=== PATIENT | female | born 1995 | race Caucasian/White ===

== ENCOUNTER 2022-03-21 14:11 | Outpatient (CLI) | payer SELFPAY ==
--- NOTE | 2022-03-21 14:30 | US_ITS ---
WS: [id number] EARLY OBSTETRICAL ULTRASOUND (<14 WEEKS). HISTORY: VAGINAL BLEEDING IN FIRST TRIMESTER COMPARISON: None available. Single intrauterine gestational sac is identified. Cardiac activity at 141 BPM. [place]-rump length laura sures 1.1 cm which corresponds to a gestation of 7w2d. Normal-appearing yolk sac and amnion demonstra leann. Small subchorionic hemorrhage. Subchorionic hemorrhage measures 3.2 x 1.3 x 2.0 cm. No free fluid. Cervix is closed. Corpus luteum of associated with the RIGHT ovary measures 1.5 x 2.1 x 1.8 cm. US/US OB <= 14 weeks fetus [id number] IMPRESSION: 1. Single intrauterine gestation of 7 weeks 2 days with an EDC of 11/05/2022. 2. Small subchorionic hemorrhage.
== END 2022-03-21 14:12 | disposition home or self-care (01) ==
PROVIDERS: Visit Provider Registered Nurse
DX: O20.9 Hemorrhage in early pregnancy, unspecified (principal); Z3A.01 Less than 8 weeks gestation of pregnancy; N83.11 Corpus luteum cyst of right ovary
CPT/HCPCS: 76801; 84702

== ENCOUNTER → 2022-04-09 08:12 | Outpatient (BNVA) | payer MEDICAID, SELFPAY | PROVIDERS: Visit Provider Obstetrics & Gynecology | DX: Z34.90 Encounter for supervision of normal pregnancy, unspecified, unspecified trimester (principal) | CPT/HCPCS: 80307; 84315; 85027; 86592; 86762; 86803; 86850; 86900; 87086; 87340 ==

== ENCOUNTER → 2022-04-24 10:36 | Outpatient (BNVA) | payer MEDICAID, SELFPAY | PROVIDERS: Visit Provider Obstetrics & Gynecology | DX: Z34.81 Encounter for supervision of other normal pregnancy, first trimester (principal) | CPT/HCPCS: 84315; 87491; 87591 ==

== ENCOUNTER → 2022-05-16 07:50 | Outpatient (BNVA) | payer MEDICAID, SELFPAY | PROVIDERS: Visit Provider Obstetrics & Gynecology | DX: O26.892 Other specified pregnancy related conditions, second trimester (principal); R10.31 Right lower quadrant pain; Z3A.15 15 weeks gestation of pregnancy | CPT/HCPCS: 76801 ==

== ENCOUNTER → 2022-05-24 15:45 | Outpatient (BNVA) | payer MEDICAID, SELFPAY | PROVIDERS: Visit Provider Nurse Practitioner Women's Health | DX: Z34.90 Encounter for supervision of normal pregnancy, unspecified, unspecified trimester (principal); K52.9 Noninfective gastroenteritis and colitis, unspecified | CPT/HCPCS: 80053; 84315; 85025 ==

== ENCOUNTER → 2022-06-21 14:44 | Outpatient (BNVA) | payer MEDICAID, SELFPAY | PROVIDERS: Visit Provider Obstetrics & Gynecology | DX: O32.1XX0 Maternal care for breech presentation, not applicable or unspecified (principal); Z3A.20 20 weeks gestation of pregnancy | CPT/HCPCS: 76805 ==

== ENCOUNTER → 2022-08-03 07:53 | Outpatient (BNVA) | payer MEDICAID, SELFPAY | PROVIDERS: Visit Provider Obstetrics & Gynecology | DX: Z34.90 Encounter for supervision of normal pregnancy, unspecified, unspecified trimester (principal) | CPT/HCPCS: 82950; 84315; 85025 ==

== ENCOUNTER → 2022-08-27 12:40 | Outpatient (BNVA) | payer MEDICAID, SELFPAY | PROVIDERS: PCP Registered Nurse; Visit Provider Obstetrics & Gynecology | DX: O36.5930 Maternal care for other known or suspected poor fetal growth, third trimester, not applicable or unspecified (principal); Z3A.31 31 weeks gestation of pregnancy | CPT/HCPCS: 76816; 76820 ==

== ENCOUNTER 2022-09-04 13:47 | Outpatient (CLI) | payer MEDICAID, SELFPAY ==
--- NOTE | 2022-09-04 14:00 | US_ITS ---
WS: [id number] BIOPHYSICAL PROFILE AND LIMITED OB. HISTORY: Growth. COMPARISON: 08/27/2022, 03/21/2022 Presentation: Vertex. Cervix: Closed and normal length. Placenta: Anterior, no previa. Grade: 1 HEART: FHR of 153BPM. measurements: BPD = 7.6 cm = 30w5d; 24th percentile HC = 28.4 cm = 31w1d; 16th percentile AC = 26.2 cm = 30w2d; 24th percentile FL = 5.8 cm = 30w2d; 16th percentile EMMIE: 11.4 centimeters; single vertical pocket 4.7 cm. EFW: 1572g; 42nd percentile AGA by ultrasound: 30w4d RAHUL by ultrasound: 11/09/2022 Biophysical profile: Parameters are as follows: Breathin Movement: 2 Tone: 2 Fluid volume: 2 US/US OB F/U w BPP wo NST IMPRESSION: 1. Biophysical profile score: 8/8. 2. Single intrauterine gestation of 30w4d with an 11/09/2022. Appropriate growt h since the first trimester ultrasound. 3. Improved biometry measurements. Biometry measurements are now all greater th en the 10th percentile. 3. Normal amniotic fluid.
== END 2022-09-04 13:48 | disposition home or self-care (01) ==
PROVIDERS: PCP Registered Nurse; Visit Provider Obstetrics & Gynecology
DX: O36.5990 Maternal care for other known or suspected poor fetal growth, unspecified trimester, not applicable or unspecified (principal)
CPT/HCPCS: 76816; 76819

== ENCOUNTER → 2022-09-10 13:02 | Outpatient (BNVA) | payer MEDICAID, SELFPAY | PROVIDERS: PCP Registered Nurse; Visit Provider Obstetrics & Gynecology | DX: Z34.90 Encounter for supervision of normal pregnancy, unspecified, unspecified trimester (principal) | CPT/HCPCS: 76819; 84315 ==

== ENCOUNTER → 2022-09-27 13:40 | Outpatient (BNVA) | payer MEDICAID, SELFPAY | PROVIDERS: PCP Registered Nurse; Visit Provider Obstetrics & Gynecology | DX: O09.93 Supervision of high risk pregnancy, unspecified, third trimester (principal) | CPT/HCPCS: 76819; 76820 ==

== ENCOUNTER → 2022-10-02 15:11 | Outpatient (BNVA) | payer MEDICAID, SELFPAY | PROVIDERS: PCP Registered Nurse; Visit Provider Obstetrics & Gynecology | DX: O09.93 Supervision of high risk pregnancy, unspecified, third trimester (principal); Z3A.35 35 weeks gestation of pregnancy | CPT/HCPCS: 76815; 76819; 76820 ==

== ENCOUNTER 2022-10-05 15:07 | Outpatient (CLI) | payer MEDICAID, SELFPAY ==
[2022-10-05 15:15] VITALS: RESP 17; BMI 26.7
[2022-10-05 15:20] VITALS: BP 118/69; PULSE 99
[2022-10-05 15:35] VITALS: BP 111/69; PULSE 101
== END 2022-10-05 15:40 | disposition home or self-care (01) ==
LOC: OPOB 15:08 → OBGYN 15:11
PROVIDERS: PCP Registered Nurse; Visit Provider Obstetrics & Gynecology
DX: O36.5990 Maternal care for other known or suspected poor fetal growth, unspecified trimester, not applicable or unspecified (principal); Z3A.00 Weeks of gestation of pregnancy not specified
CPT/HCPCS: 59025; 84315

== ENCOUNTER → 2022-10-09 14:32 | Outpatient (BNVA) | payer MEDICAID, SELFPAY | PROVIDERS: PCP Registered Nurse; Visit Provider Obstetrics & Gynecology | DX: O36.5990 Maternal care for other known or suspected poor fetal growth, unspecified trimester, not applicable or unspecified (principal) | CPT/HCPCS: 76819; 76820 ==

== ENCOUNTER → 2022-10-12 14:18 | Outpatient (BNVA) | payer MEDICAID, SELFPAY | PROVIDERS: PCP Registered Nurse; Visit Provider Obstetrics & Gynecology | DX: Z34.90 Encounter for supervision of normal pregnancy, unspecified, unspecified trimester (principal) | CPT/HCPCS: 84315 ==

== ENCOUNTER 2022-10-12 15:00 | Outpatient (CLI) | payer MEDICAID, SELFPAY ==
[2022-10-12 15:00] VITALS: BMI 27.1
[2022-10-12 15:15] VITALS: BP 118/69; PULSE 93
[2022-10-12 15:39] VITALS: BP 114/68; PULSE 92
== END 2022-10-12 15:41 | disposition home or self-care (01) ==
LOC: OPOB 15:05 → OBGYN 15:07
PROVIDERS: PCP Registered Nurse; Visit Provider Obstetrics & Gynecology
DX: O09.893 Supervision of other high risk pregnancies, third trimester (principal)
CPT/HCPCS: 59025; 84315; 87081; 87086; 99211

== ENCOUNTER 2022-10-16 15:55 | Outpatient (CLI) | payer MEDICAID, SELFPAY ==
[2022-10-16 15:55] VITALS: BMI 27.1
[2022-10-16 16:15] VITALS: BP 111/74; PULSE 87
[2022-10-16 16:30] VITALS: BP 108/65; PULSE 90
== END 2022-10-16 16:40 | disposition home or self-care (01) ==
LOC: OPOB 15:57 → OBGYN 15:59
PROVIDERS: PCP Registered Nurse; Visit Provider Obstetrics & Gynecology
DX: O36.5990 Maternal care for other known or suspected poor fetal growth, unspecified trimester, not applicable or unspecified (principal); Z3A.00 Weeks of gestation of pregnancy not specified
CPT/HCPCS: 59025; 76819; 76820

== ENCOUNTER 2022-10-18 13:00 | Outpatient (CLI) | payer MEDICAID, SELFPAY ==
[2022-10-18] VITALS (9 sets, daily range): BP systolic 103–120; BP diastolic 57–76; PULSE 88–100; RESP 18; TEMP 35.9; BMI 27.6
--- NOTE | 2022-10-18 13:36 | US_ITS ---
WS: [id number] ULTRASOUND OB LIMITED TECHNIQUE: Limited ultrasound examination of the fetus. CLINICAL INFORMATION: Decreased movement COMPARISON: October 16, 2022 FINDINGS: Closed cervix measuring 3.9 cm Single interuterine gestation. presentation is vertex heart rate 157 BPM. Single deep vertical pocket 5.7 cm Biophysical profile 8 out of 8. breathin movement: 2 tone: 2 Amniotic fluid: 2 US/US OB BPP wo NST [id number] IMPRESSION: 1. Closed cervix measuring 3.9 cm 2. Normal biophysical profile 8 out of 8 3. Single deep vertical pocket 5.7 cm
== END 2022-10-18 14:25 | disposition home or self-care (01) ==
LOC: OPOB 13:03 → OBGYN 13:04
PROVIDERS: PCP Registered Nurse; Visit Provider Obstetrics & Gynecology
DX: O36.8190 Decreased fetal movements, unspecified trimester, not applicable or unspecified (principal); Z3A.00 Weeks of gestation of pregnancy not specified
CPT/HCPCS: 59025; 76819; 99211

== ENCOUNTER 2022-10-23 15:57 | Outpatient (CLI) | payer MEDICAID, SELFPAY ==
[2022-10-23 15:57] VITALS: BMI 27.1
[2022-10-23 16:09] VITALS: BP 120/68; PULSE 93
--- NOTE | 2022-10-23 16:30 | PC.NURSE ---
Pt chart has a note with a telephone order from Dr. Marsh stating no need to call unless any issues or concerns.
== END 2022-10-23 16:30 | disposition home or self-care (01) ==
LOC: OPOB 16:05 → OBGYN 16:06
PROVIDERS: PCP Registered Nurse; Visit Provider Obstetrics & Gynecology
DX: Z36.9 Encounter for antenatal screening, unspecified (principal); Z3A.00 Weeks of gestation of pregnancy not specified
CPT/HCPCS: 59025; 76819; 76820; 99211

== ENCOUNTER 2022-10-30 15:56 | Outpatient (CLI) | payer MEDICAID, SELFPAY ==
[2022-10-30 16:03] VITALS: BP 116/76; PULSE 97
[2022-10-30 16:10] VITALS: BMI 27.6
[2022-10-30 16:23] VITALS: BP 113/77; PULSE 93
== END 2022-10-30 16:25 | disposition home or self-care (01) ==
LOC: OPOB 15:59 → OBGYN 16:00
PROVIDERS: PCP Registered Nurse; Visit Provider Obstetrics & Gynecology
DX: Z36.9 Encounter for antenatal screening, unspecified (principal)
CPT/HCPCS: 59025; 76815; 76819; 76820

== ENCOUNTER → 2022-11-06 14:15 | Outpatient (BNVA) | payer MEDICAID, SELFPAY | PROVIDERS: PCP Registered Nurse; Visit Provider Obstetrics & Gynecology | DX: O36.5990 Maternal care for other known or suspected poor fetal growth, unspecified trimester, not applicable or unspecified (principal) | CPT/HCPCS: 76819; 76820 ==

== ENCOUNTER 2022-11-06 20:20 | Inpatient (IN) | payer MEDICAID, SELFPAY ==
[2022-11-06 20:23] VITALS: BMI 27.9
[2022-11-06 21:28] VITALS: RESP 16
[2022-11-06 21:34] LABS: Basophils % 0.2 %; Eosinophils # 0.1 10^3/uL (0.0-0.8); Eosinophils % 0.6 %; Hematocrit 34.5 % (37.0-47.0); Hemoglobin 11.4 g/dL (11.5-15.3); Lymphocytes # 2.5 10^3/uL (0.8-4.8); Lymphocytes % 18.8 %; Mean Corpuscular Hemoglobin 31.6 pg (28.0-34.0); Mean Corpuscular Volume 95.6 fl (81-99); Mean Platelet Volume 10.9 fL (7.4-10.4); Monocytes # 1.1 10^3/uL (0.2-0.9); Monocytes % 8.6 %; Neutrophils # 9.37 10^3/uL (1.8-7.7); Neutrophils % 70.9 %; Nucleated Red Blood Cells % 0 %; Platelet Count 184 10^3/cmm (130-400); Red Blood Count 3.61 10^6/uL (4.1-5.3); Red Cell Distribution Width 13.1 % (12.1-15.1); White Blood Count 13.2 10^3/uL (4.0-10.0)
[2022-11-06] MEDS: miSOPROStol 100 mcg tablet 25 MCG VAGINAL (22:45)
[2022-11-06 23:18] VITALS: BP 127/70; PULSE 94
--- NOTE | 2022-11-06 23:43 | PM.OPHPUD ---
Labor & Delivery H&P Update Date of Procedure: November 06, 2022 Date H&P Performed: 11/06/22 H&P update information: I have reviewed H&P completed within last 30 days, I have examined patient prior to procedure and Changes to prior documentation as noted here Changes to previous documentation: The patient was found to have oligohydramnios on ultrasound. She is being admitted for induction of labor for oligohydramnios. IUP@ 40 weeks, 1 day. Cervix /-3 Admission Diagnosis: iup@ 40 weeks, 1 day, oligohydramnios
[2022-11-06 23:49] VITALS: BP 112/70; PULSE 96
[2022-11-07] VITALS (58 sets, daily range): BP systolic 91–155; BP diastolic 51–94; PULSE 72–108; RESP 16; TEMP 36.6; O2SAT 92–98
[2022-11-07] MEDS: lactated ringers 1,000 ML 999 ML IV ×3 (02:41→11:40)
[2022-11-07] MEDS: miSOPROStol 100 mcg tablet 25 MCG VAGINAL (05:08)
[2022-11-07] MEDS: dextrose 5%-lactated ringers 1,000 ML 125 ML IV (12:49)
--- NOTE | 2022-11-07 14:38 | ANES.PREANE2 ---
Pre-Anesthetic Assessment Height/Weight: Height 1.63 m Weight 73.936 kg Pulse Resp BP Pulse Ox O2 Del Method 86 16 103/56 95 Room Air 11/07/22 14:15 11/06/22 21:28 11/07/22 14:15 11/07/22 03:27 11/06/22 20:23 Preop Diagnosis: IUP Epidural Familial anesthetic complications: None Social No alcohol and No tobacco Exam alert, oriented x 3, clear to auscultation bilaterally and regular rate & rhythm Airway Dentition: full Anesthetic Plan ASA status: 2 Anesthesia: Regional (specify below) Risk of > 500 ml blood loss (7ml/kg in children): Yes, adequate IV access and fluids planned Medications/Allergies Home Medications Medication Instructions Recorded Confirmed Last Taken Type prenat.vits,claire,yju-wsip-lxfyv 1 tab PO DAILY 04/09/22 11/06/22 10/29/22 History Allergies Allergy/AdvReac Type Severity Reaction Status Date / Time arginine oxoglurate Allergy Severe itching, Verified 11/02/22 15:16 [From hives L-Arginine(alpha-ketoglutarat)] pineapple Allergy Severe itchy Uncoded 11/02/22 15:16 throat septra Allergy Intermediate rash Uncoded 11/02/22 15:16 Current Medications Generic Name Dose Route Start Last Admin Trade Name Freq PRN Reason Stop Dose Admin Dextrose/Lactated Ringer's 1,000 mls @ 125 mls/hr 11/06/22 21:30 11/07/22 12:49 Dextrose 5%-Lactated Ringers IV 125 mls/hr .Q8H WALDO Administration Lactated Ringer's 1,000 mls @ 999 mls/hr 11/06/22 21:28 11/07/22 02:41 Lactated Ringers IV 999 mls/hr .Q1H1M PRN Administration Per L&D Rescitation Protocol Lactated Ringer's 1,000 mls @ 999 mls/hr 11/07/22 10:17 11/07/22 11:40 Lactated Ringers IV 999 mls/hr .Q1H1M PRN Administration See label comments Ropivacaine 200 mg in 100 mls @ 13 mls/hr 11/07/22 10:30 11/07/22 11:35 Naropin Premix EPIDURAL 13 mls/hr .Q7H42M WALDO Administration PFSH Anesthesia Medical History No pertinent past medical history neghx: htn,dm,thyroid,dvt/pe PCP: Alice Barbosa Surgical History No history of previous surgery Family History Unknown Unknown family medical history The patient is adopted Female Reproductive History : 2 Data Anesthesia 11/06/22 21:05 Short CBC 11/06/22 Range/Units 21:05 WBC 13.2 H (4.0-10.0) 10^3/uL Hgb 11.4 L (11.5-15.3) g/dL Hct 34.5 L (37.0-47.0) % MCV 95.6 (81-99) fl Plt Count 184 (130-400) 10^3/cmm Neut % (Auto) 70.9 % Neut # (Auto) 9.37 H (1.8-7.7) 10^3/uL Cardiac Studies: No Data to Display
--- NOTE | 2022-11-07 14:38 | ANES.PROC ---
Anesthesia Procedures Procedure/Date: 11/07/22 Epidural: Time Out Performed: Yes Consents Signed: Procedure Consent Consent: requested by attending/covering physician, from patient, from other, risks and benefits reviewed and patient agrees to proceed Lumbar Level: L2-L3 Epidural position: sitting Epidural procedure: sterile prep of area, 1% lidocaine to numb the area, 18 g needle, negative for paresthesia passed, neg for paresthesia, test dose given, 1.5% xylocaine 1:200k epi (5 cc), 0.2% Ropivacaine bolus ml (5 cc), placed PCEA, no systemic response, sterile dressing applied, L.U.D. no apparent complications and 0.2% Ropiavacaine @ mls/hr (13) Additional Comments: VIDA at 4 cm, threaded to 10 cm
--- NOTE | 2022-11-07 16:44 | PM.DELIVERY ---
Delivery Note: Date of delivery: November 07, 2022 Pre-delivery diagnoses: iup@40 weeks, 2 days, oligohydramnios. Post-delivery diagnoses: same-delivered Procedure: Delivering Physician: Dr. courtney Estimated blood loss (mL): 25 Findings: term female in the cephalic presentation Pre-Delivery Course: The patient was admitted for induction of labor for oligohydramnios. She received two doses of cytotec and began laboring spontaneously from the cytotec. She received an epidural for pain management. She had complete cervical dilation and had AROM performed. Delivery: The patient had complete cervical dilation and began to push. The head delivered in the ADAM position over an intact perineum under epidural anesthesia. The nose and mouth were bulb suctioned. The shoulders and body delivered atraumatically. The baby was placed onto the mother's abdomen. The cord was clamped and cut. Cord blood was obtained. The placenta delivered spontaneously. It was inspected and found to be intact. Inspection of the perineum revealed a small (1 cm) first-degree vaginal laceration. It was hemostatic and no sutures were placed. Estimated blood loss 25 mL. Apgars on baby were 8 at 1 minute and 9 at 5 minutes. Weight of baby is 7 pounds 3 ounces. Mother and baby were stable post delivery. History History History 2 Term 1 0 Miscarriages/Ectopic 0 Living Children 1 Coding Level of Care Code Acute Code for Chg Fwd Diagnoses
--- NOTE | 2022-11-07 19:49 | PC.NURSE ---
At 1622 Dr. Lucia gave verbal order to start pitocin at 2 mls/hr until delivery of fetus.
[2022-11-07] MEDS: ibuprofen 800 mg tablet PO (20:11)
[2022-11-07] MEDS: docusate sodium 100 mg Capsule PO (20:11)
[2022-11-07] MEDS: benzocaine-menthol 78 gm Canister 1 SPRAY TOPICAL (20:12)
[2022-11-07] MEDS: lanolin oint 7 gm 1 APPLIC TOPICAL (20:12)
[2022-11-07] MEDS: acetaminophen 325 mg Tablet 650 MG PO (21:33)
[2022-11-08] MEDS: HYDROcodone-acetaminophen 5-325 mg Tablet PO (02:09)
[2022-11-08 05:03] VITALS: BP 97/51; PULSE 88; RESP 18; TEMP 36.8; O2SAT 96
[2022-11-08 05:17] LABS: Hematocrit 31.5 % (37.0-47.0); Mean Corpuscular HGB Conc 31.7 g/dL (30.0-36.0); Mean Corpuscular Volume 97.5 fl (81-99); Mean Platelet Volume 10.6 fL (7.4-10.4); Platelet Count 142 10^3/cmm (130-400); Red Blood Count 3.23 10^6/uL (4.1-5.3); White Blood Count 14.2 10^3/uL (4.0-10.0)
[2022-11-08 07:35] VITALS: BP 110/69; PULSE 82; RESP 18; TEMP 37
--- NOTE | 2022-11-08 08:08 | P.PN_ITS ---
Vitals/I&O/Wt Last Vital Signs Temp 98.3 F 11/08/22 05:03 Pulse 88 11/08/22 05:03 Resp 18 11/08/22 05:03 BP 97/51 11/08/22 05:03 Pulse Ox 96 11/08/22 05:03 O2 Del Method Room Air 11/08/22 05:03 11/07/22 11/08/22 11/08/22 22:59 06:59 14:59 Intake Total 1456.75 / 2456.75 Output Total 1100 / 1100 Balance 356.75 / 1356.75 Weight last 48 hrs Weight 163 lb Physical Exam Narrative: The patient is doing well today. No concers. is going well. normal lochia. Pain is well controlled. The patient requests to stay until tomorrow Const: COMMON NORMALS: no acute distress, average body habitus, patient or iented x3, no limitations, healthy appearing, alert and well nourished GENERAL APPEARANCE: cooperative, comfortable, well kempt and well developed ORIENTATION/CONSCIOUSNESS: Yes awake, Yes oriented to person, Yes oriented to place and Yes oriented to time Resp: COMMON NORMALS: normal respiratory effort EFFORT & INSPECTION: Yes able to speak in complete sentences GI: COMMON NORMALS: Soft to palpation and non-tender PALPATION: Yes Soft to palpation Extremity: COMMON NORMALS: no calf tenderness Neuro: COMMON NORMALS: patient oriented x3 SENSORIUM/ORIENTATION: Yes alert, Yes oriented to person, Yes oriented to place and Yes oriented to time Psych: COMMON NORMALS: mental status grossly normal, Normal thought process present and speech normal APPEARANCE: Yes well kempt SPEECH: Yes normal speech THOUGHT PROCESS: Normal thought process present Urinary Catheter Management: Allison: Cath Placed During This Visit: yes, but has since been removed by the nurse Reason for Continuing Indwelling Catheter: Required Immobilization for Trauma or Surgery or Anesthesia Urinary Catheter Date of Insertion: 11/07/22 Urinary Catheter Time of Insertion: 12:10 Date Urinary Catheter Removed: 11/07/22 Time Urinary Catheter Discontinued: 16:20 Data 11/08/22 05:10 Attestations Medical Necessity Statement*: The patient had vaginal delivery and requests to stay for two nights. Coding Level of Care Code Acute Code for Chg Fwd Diagnoses
[2022-11-08] MEDS: ibuprofen 800 mg tablet PO ×3 (09:18→20:55)
[2022-11-08] MEDS: prenatal vitamin Capsule 1 CAP PO (09:19)
[2022-11-08] MEDS: docusate sodium 100 mg Capsule PO ×2 (09:19→17:14)
[2022-11-08 14:42] VITALS: BP 111/70; PULSE 90; RESP 18; TEMP 36.9
[2022-11-08] MEDS: acetaminophen 325 mg Tablet 650 MG PO (17:14)
[2022-11-08 20:54] VITALS: BP 109/61; PULSE 89; RESP 18; TEMP 36.6; O2SAT 95
[2022-11-09] MEDS: HYDROcodone-acetaminophen 5-325 mg Tablet PO (00:44)
[2022-11-09 04:00] VITALS: BP 109/58; PULSE 96; RESP 18; TEMP 36.9; O2SAT 97
[2022-11-09] MEDS: ibuprofen 800 mg tablet PO (08:28)
[2022-11-09] MEDS: prenatal vitamin Capsule 1 CAP PO (08:29)
[2022-11-09] MEDS: docusate sodium 100 mg Capsule PO (08:29)
--- NOTE | 2022-11-09 09:38 | P.DS_ITS ---
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 Date of Admission: 11/06/22 20:20 Date of Discharge: November 09, 2022 Attending Provider at Admission: Carine Lucia MD Attending Provider at Discharge: Carine Lucia MD Primary Care Provider: Sara Barbosa Reason for Visit Reason for Visit: low fluid Hospital Course Hospital Course The patient was admitted for induction at term with oligohydramnios. She had spontaneous delivery of a term . She did well and was ready for discharge on day #2 Physical Exam Narrative: no concerns today Const: COMMON NORMALS: no acute distress, average body habitus, patient oriented x3, no limitations, healthy appearing, alert and well nourished GENERAL APPEARANCE: cooperative, comfortable, well kempt and well developed ORIENTATION/CONSCIOUSNESS: Yes awake, Yes oriented to person, Yes oriented to place and Yes oriented to time Resp: COMMON NORMALS: normal respiratory effort EFFORT & INSPECTION: Yes able to speak in complete sentences GI: COMMON NORMALS: Soft to palpation and non-tender PALPATION: Yes Soft to palpation Extremity: COMMON NORMALS: no calf tenderness Neuro: COMMON NORMALS: patient oriented x3 SENSORIUM/ORIENTATION: Yes alert, Yes oriented to person, Yes oriented to place and Yes oriented to time Psych: APPEARANCE: Yes well kempt Urinary Catheter Management: Allison: Cath Placed During This Visit: yes, but has since been removed by the nurse Reason for Continuing Indwelling Catheter: Required Immobilization for Trauma or Surgery or Anesthesia Urinary Catheter Date of Insertion: 11/07/22 Urinary Catheter Time of Insertion: 12:10 Date Urinary Catheter Removed: 11/07/22 Time Urinary Catheter Discontinued: 16:20 Discharge Data Studies Completed and Pending Laboratory Results WBC 14.2 10^3/uL (4.0-10.0) H 11/08/22 05:10 RBC 3.23 10^6/uL (4.1-5.3) L 11/08/22 05:10 Hgb 10.0 g/dL (11.5-15.3) L 11/08/22 05:10 Hct 31.5 % (37.0-47.0) L 11/08/22 05:10 MCV 97.5 fl (81-99) 11/08/22 05:10 MCH 31.0 pg (28.0-34.0) 11/08/22 05:10 MCHC 31.7 g/dL (30.0-36.0) 11/08/22 05:10 RDW 13.0 % (12.1-15.1) 11/08/22 05:10 Plt Count 142 10^3/cmm (130-400) 11/08/22 05:10 MPV 10.6 fL (7.4-10.4) H 11/08/22 05:10 Neut % (Auto) 70.9 % 11/06/22 21:05 Lymph % (Auto) 18.8 % 11/06/22 21:05 [place] % (Auto) 8.6 % 11/06/22 21:05 Eos % (Auto) 0.6 % 11/06/22 21:05 Baso % (Auto) 0.2 % 11/06/22 21:05 Neut # (Auto) 9.37 10^3/uL (1.8-7.7) H 11/06/22 21:05 Lymph # (Auto) 2.5 10^3/uL (0.8-4.8) 11/06/22 21:05 [place] # (Auto) 1.1 10^3/uL (0.2-0.9) H 11/06/22 21:05 Eos # (Auto) 0.1 10^3/uL (0.0-0.8) 11/06/22 21:05 Baso # (Auto) 0.0 10^3/uL (0.0-0.1) 11/06/22 21:05 Nucleated RBC % (auto) 0 % 11/06/22 21:05 Nucleated RBCs # 0.0 /100WBC 11/06/22 21:05 Vitals Last Vital Signs Temp 98.5 F 11/09/22 04:00 Pulse 96 11/09/22 04:00 Resp 18 11/09/22 04:00 BP 109/58 11/09/22 04:00 Pulse Ox 97 11/09/22 04:00 O2 Del Method Room Air 11/09/22 04:00 Discharge Plan Discharge Condition: Stable Prescriptions: Continued prenat.vits,claire,[id number] Tablet 1 tab PO DAILY Discharge Orders: Discharge Order (Routine); Ordered 11/09/22 Ordered By: Carine Lucia Referrals: Rah Marsh MD [Physician] - 12/17/22 1:30 pm Patient Instructions: Depression (DC), Bleeding (DC), Preeclampsia and Eclampsia After Delivery (GEN), Hemorrhage (DC), OB Discharge Report, OB Food/Drug Interaction Guide, Opioid Safety, OB Home Care, OB Vaginal Deliveries - [facility] Discharge Attestations Time Spent in Discharge Care*: less than 30 min Quality Metrics Clinical Quality Measures [ No reported AMI, CVA or VTE this stay] Coding Level of Care Code Acute Code for Chg Fwd Diagnoses
[2022-11-09 10:30] VITALS: BP 120/81; PULSE 78; TEMP 36.7; O2SAT 96
--- NOTE | 2022-11-09 13:43 | ANE.PACU2 ---
Inpatient post-anesthesia follow up: Airway intact: Yes Vital signs: Temperature 98.1 F Pulse Rate 78 Respiratory Rate 18 Blood Pressure 120/81 Pulse Oximetry 96 Oxygen Delivery Me thod Room Air Oxygen Flow Rate Fraction of Inspir ed Oxygen Hydration adequate: Yes Nausea and vomiting: Yes Pain level: 2 Mental status: Baseline
== END 2022-11-09 11:04 | disposition home or self-care (01) | DRG 807 ==
LOC: OPOB 20:21 → OBGYN 20:21
PROVIDERS: Admitting Provider Obstetrics & Gynecology; PCP Registered Nurse; Visit Provider Obstetrics & Gynecology
DX: O41.03X0 Oligohydramnios, third trimester, not applicable or unspecified (principal); Z37.0 Single live birth; Z3A.40 40 weeks gestation of pregnancy; O70.0 First degree perineal laceration during delivery; O48.0 Post-term pregnancy
CPT/HCPCS: 36415; 51702; 59025; 59409; 84315; 85025; 85027; 99211; J2590; J2795; J7040; J7120; J7121

== ENCOUNTER → 2023-12-18 08:26 | Outpatient (BNVA) | payer MEDICAID, SELFPAY | PROVIDERS: PCP Registered Nurse; Visit Provider Nurse Practitioner Women's Health | DX: N92.6 Irregular menstruation, unspecified (principal); Z78.9 Other specified health status | CPT/HCPCS: 81025; 84702 ==

== ENCOUNTER → 2024-01-15 12:24 | Outpatient (BNVA) | payer MEDICAID, SELFPAY | PROVIDERS: PCP Registered Nurse; Visit Provider Nurse Practitioner Women's Health | DX: Z36.87 Encounter for antenatal screening for uncertain dates (principal) | CPT/HCPCS: 76801; 80307; 84315; 84443; 85025; 86592; 86762; 86803; 86850; 86900; 87086; 87340; 87806 ==

== ENCOUNTER → 2024-02-07 13:09 | Outpatient (BNVA) | payer MEDICAID, SELFPAY | PROVIDERS: PCP Registered Nurse; Visit Provider Obstetrics & Gynecology | DX: Z34.80 Encounter for supervision of other normal pregnancy, unspecified trimester (principal) | CPT/HCPCS: 84315; 87491; 87591; 88175 ==

== ENCOUNTER → 2024-03-18 14:23 | Outpatient (BNVA) | payer MEDICAID, SELFPAY | PROVIDERS: PCP Registered Nurse; Visit Provider Obstetrics & Gynecology | DX: Z36.2 Encounter for other antenatal screening follow-up (principal); Z3A.20 20 weeks gestation of pregnancy | CPT/HCPCS: 76805 ==

== ENCOUNTER → 2024-04-13 09:23 | Outpatient (BNVA) | payer MEDICAID, SELFPAY | PROVIDERS: PCP Registered Nurse; Visit Provider Obstetrics & Gynecology | DX: Z34.80 Encounter for supervision of other normal pregnancy, unspecified trimester (principal) | CPT/HCPCS: 82950; 84315 ==

== ENCOUNTER → 2024-04-16 13:56 | Outpatient (BNVA) | payer MEDICAID, SELFPAY | PROVIDERS: PCP Registered Nurse; Visit Provider Obstetrics & Gynecology | DX: Z36.4 Encounter for antenatal screening for fetal growth retardation (principal); Z3A.24 24 weeks gestation of pregnancy | CPT/HCPCS: 76816 ==

== ENCOUNTER → 2024-05-15 14:23 | Outpatient (BNVA) | payer MEDICAID, SELFPAY | PROVIDERS: PCP Registered Nurse; Visit Provider Obstetrics & Gynecology | DX: Z34.80 Encounter for supervision of other normal pregnancy, unspecified trimester (principal) | CPT/HCPCS: 84315; 85025 ==

== ENCOUNTER → 2024-06-26 14:19 | Outpatient (BNVA) | payer MEDICAID, SELFPAY | PROVIDERS: PCP Registered Nurse; Visit Provider Nurse Practitioner Women's Health | DX: Z34.83 Encounter for supervision of other normal pregnancy, third trimester (principal) | CPT/HCPCS: 84315 ==

== ENCOUNTER → 2024-07-07 08:33 | Outpatient (BNVA) | payer MEDICAID, SELFPAY | PROVIDERS: PCP Registered Nurse; Visit Provider Obstetrics & Gynecology | DX: Z36.9 Encounter for antenatal screening, unspecified (principal) | CPT/HCPCS: 76816 ==

== ENCOUNTER → 2024-07-10 11:22 | Outpatient (BNVA) | payer MEDICAID, SELFPAY | PROVIDERS: PCP Registered Nurse; Visit Provider Obstetrics & Gynecology | DX: Z34.80 Encounter for supervision of other normal pregnancy, unspecified trimester (principal); Z87.59 Personal history of other complications of pregnancy, childbirth and the puerperium | CPT/HCPCS: 84315; 87081 ==

== ENCOUNTER → 2024-07-17 10:58 | Outpatient (BNVA) | payer MEDICAID, SELFPAY | PROVIDERS: PCP Registered Nurse; Visit Provider Obstetrics & Gynecology | DX: Z34.80 Encounter for supervision of other normal pregnancy, unspecified trimester (principal) | CPT/HCPCS: 84315 ==

== ENCOUNTER 2024-07-22 12:57 | Inpatient (IN) | payer MEDICAID, SELFPAY ==
[2024-07-22] VITALS (32 sets, daily range): BP systolic 102–145; BP diastolic 56–85; PULSE 83–112; RESP 17; TEMP 36.1–36.2; BMI 29.2
[2024-07-22 08:39] LABS: Basophils % 0.3 %; Eosinophils # 0.1 10^3/uL (0.0-0.8); Eosinophils % 1.1 %; Hematocrit 32.9 % (36-47); Lymphocytes # 2.6 10^3/uL (0.8-4.8); Lymphocytes % 22.5 %; Mean Corpuscular HGB Conc 32.8 g/dL (30-55); Mean Corpuscular Hemoglobin 30.4 pg (27-33); Mean Corpuscular Volume 92.7 fl (85-98); Mean Platelet Volume 11.4 fL (7.4-10.4); Monocytes # 1.2 10^3/uL (0.2-0.9); Monocytes % 9.9 %; Neutrophils # 7.45 10^3/uL (1.8-7.7); Neutrophils % 64.5 %; Nucleated Red Blood Cells % 0 %; Platelet Count 189 10^3/cmm (157-399); Red Blood Count 3.55 10^6/uL (3.85-5.65); Red Cell Distribution Width 13.4 % (12.1-15.1); White Blood Count 11.57 10^3/uL (3.29-11.43)
[2024-07-22] MEDS: terbutaline 1 mg/mL INJ 0.25 MG SUBCUT (09:44)
--- NOTE | 2024-07-22 10:19 | P.PN_ITS ---
Subjective 2 Subjective: Mrs. Alatorre 28-year-old female with an estimated gestational age at 38+3 weeks in transverse presentation. Vitals/I&O/Wt Last Vital Signs Pulse 100 07/22/24 10:16 Resp 17 07/22/24 08:06 BP 131/62 07/22/24 10:16 O2 Del Method Room Air 07/22/24 08:06 Weight last 48 hrs Weight 77.111 kg Physical Exam 2 Narrative: GA: Alert and oriented ?3. Lungs: Clear to auscultation bilaterally. Heart: Regular rhythm and rate. Abdomen: Gravid, full the height equals dates, nontender. SUPPLY CHAIN PLANNER: SVE; dilation: 0 cm, effacement: 0%, station: -5, presentation: trasnverse, membranes: intact. Extremities: no edema, no cyanosis, no calves pain. heart tracing: Basal rate: 140's bpm, Variability: moderate, Accelerations: present, Decelerations: absent, Contraction: q3min. Data 07/22/24 08:05 Other data: External Cephalic Version Description Dr. Marsh has discussed External Cephalic Version with you. External Cephalic Version is a simple, non-invasive procedure performed when a fetus is not positioned optimally for delivery. External Cephalic Version is usually performed after 36 weeks, to maximize the chance that the repositioned fetus will not flip back to its original position. For this procedure, your clinician will adminster an intravenous medication to relax the uterus. You lie your back, and your clinician feels for your baby's head. When the head has been located, your clincian gently lifts the baby out of the mother's pelvis (hip bones) and attempt to gently rotate it into the proper (vertex) position. When the baby has been successfully rotated, the procedure is complete. Once a vertex presentation is achieved, the chances for a vaginal delivery increase. Benefits ? May permit vaginal delivery rather than section. Alternatives Please consult your clinician for other options available to you. Risks include, but are not limited to: ? Infection, bleeding, swelling, scarring, or pain at the IV insertion site. ? Discomfort as the clinician rotates the baby. ? Damage to the fetus or surrounding area. ? The fetus may revert to its original position or version may not be successful. ? Premature labor caused by rupture of the membranes. ? Emergency delivery due to distress. A&P Assessment and plan (1) Transverse presentation, antepartum: Ms. Natarajan Alatorre 28-year-old female with an estimated gestational age at 38 weeks and +3 days in transverse presentation. Came in for an external cephalic version. The patient was placed in the supine position, an NST was obtained. The abdomen was liberally coated with ultrasonic gel in order to decrease friction and lessen the chances of an overvigorous manipulation. Gentle disengagement performed. Back flip/roll: mobilize the trasnverse. and simultaneously pushed upward, gently guiding it vertex toward the pelvis. After the second attempt decelerations noted IV fluids was given and O2. heart tracing observed for 10 minutes with good recovery and moderate variability and no decelerations during the 10-minute of observation. A third attempt was performed with the back flip is completed, and the external cephalic version was successful without distress. Patient had been counseled regarding post version management. She elected to proceed with an induction after the cephalic version. She was counseled regarding induction and the off label use of misoprostol for cervical ripening before starting Pitocin augmentation. Qualifiers: Fetus number: single or unspecified fetus Qualified Code(s): O32.2XX0 - Maternal care for transverse and oblique lie, not applicable or unspecified Plan Proceed with induction. Attestations 2 Medical Necessity Statement*: In my professional opinion per admitting diagnosis Coding Level of Care Code Acute Code for Chg Fwd Diagnoses Transverse presentation, antepartum, single or unspecified fetus O32.2XX0 Fetus number: single or unspecified fetus
--- NOTE | 2024-07-22 10:19 | PM.OPHPUD ---
Labor & Delivery H&P Update Date of Procedure: July 22, 2024 Date H&P Performed: 11/06/22 H&P update information: I have reviewed H&P completed within last 30 days, I have examined patient prior to procedure and No changes to prior documentation Admission Diagnosis:
[2024-07-22] MEDS: miSOPROStol 100 mcg tablet 25 MCG VAGINAL ×3 (11:01→19:55)
[2024-07-23] VITALS (42 sets, daily range): BP systolic 97–132; BP diastolic 53–80; PULSE 79–97; RESP 18; TEMP 35.2–36.1
[2024-07-23] MEDS: miSOPROStol 100 mcg tablet 25 MCG VAGINAL (06:17)
[2024-07-23] MEDS: dextrose 5%-lactated ringers 1,000 ML 124 ML IV (13:00)
[2024-07-23] MEDS: oxytocin 30 UNIT/500 ML BAG IV (13:08)
[2024-07-23] MEDS: dextrose 5%-lactated ringers 1,000 ML 125 ML IV (21:27)
[2024-07-23] MEDS: calcium carbonate 500 mg Chew Tablet 1000 MG PO (22:39)
[2024-07-23] MEDS: acetaminophen 325 mg Tablet 650 MG PO (22:39)
[2024-07-24] VITALS (62 sets, daily range): BP systolic 93–179; BP diastolic 51–98; PULSE 73–109; RESP 16; TEMP 36.8–36.9; O2SAT 94–99
--- NOTE | 2024-07-24 01:21 | PC.NURSE ---
Pitocin runnning at 6ml/hr at 1900 as noted by this RN. This RN charted in MAR at 1900 that pitocin that had previously titrated up was at 6ml/hr so that further titration could be charted. Pitocin increased to 6ml/hr by previous shift RN before 1900.
--- NOTE | 2024-07-24 02:24 | ANES.PREANE2 ---
Pre-Anesthetic Assessment Height/Weight: Height 1.63 m Weight 77.111 kg Temp Pulse Resp BP Pulse Ox O2 Del Method 97.0 F L 97 18 129/86 98 Room Air 07/23/24 13:09 07/24/24 02:22 07/23/24 17:53 07/24/24 02:22 07/24/24 02:20 07/22/24 08:06 Preop Diagnosis: IUP labor epidural Familial anesthetic complications: none Was Beta Piero taken within 24 hours: N/A Was Clonidine taken within 24 hours: N/A Social No alcohol and No tobacco Exam alert, oriented x 3, clear to auscultation bilaterally and regular rate & rhythm Airway Mallampati: Class II Dentition: full History/ROS No significant history except as noted Pulmonary None reported CV/HEM None reported None reported Hepatic None reported GI None reported Metabolic None reported Musc/skel None reported Neuropsych None reported Anesthetic Plan ASA status: 2 Anesthesia: Anesthesia Evaluation and Regional (specify below) (epidural) Risk of > 500 ml blood loss (7ml/kg in children): Yes, adequate IV access and fluids planned Medications/Allergies Home Medications Medication Instructions Recorded Confirmed Last Taken Type prenat.vits,claire,mqy-mtea-rgeyn 1 tab PO DAILY 04/09/22 07/17/24 10/29/22 History acetaminophen 325 mg capsule 325 mg PO ONCE PRN 04/13/24 07/17/24 Unknown History (Tylenol) calcium carbonate (Tums) 200 mg PO DAILY 04/13/24 07/17/24 Unknown History Allergies Allergy/AdvReac Type Severity Reaction Status Date / Time arginine oxoglurate Allergy Severe itching, Verified 07/17/24 10:32 [From hives L-Arginine(alpha-ketoglutarat)] pineapple Allergy Severe itchy Uncoded 07/17/24 10:32 throat septra Allergy Intermediate rash Uncoded 07/17/24 10:32 Current Medications Generic Name Dose Route Start Last Admin Trade Name Freq PRN Reason Stop Dose Admin Acetaminophen 650 mg 07/22/24 08:05 07/23/24 22:39 Acetaminophen 325 Mg Tablet PO 650 mg Q6H PRN Administration Mild pain or temp > 100.4 Calcium Carbonate 1,000 mg 07/22/24 08:05 07/23/24 22:39 Calcium Carbonate 500 Mg Chew Tablet PO 1,000 mg Q4H PRN Administration Heartburn/Indigestion (Use 1st) Dextrose/Lactated Ringer's 1,000 mls @ 125 mls/hr 07/22/24 08:15 07/23/24 13:00 Dextrose 5%-Lactated Ringers IV 124 mls/hr .Q8H WALDO Administration Dextrose/Lactated Ringer's 1,000 mls @ 125 mls/hr 07/22/24 10:36 07/23/24 21:27 Dextrose 5%-Lactated Ringers IV 125 mls/hr .Q8H PRN Administration per label comments Oxytocin 30 unit in 500 mls @ 1 mls/hr 07/23/24 12:00 07/24/24 01:20 Pitocin IV 5 milliunit/min .Q24H WALDO 5 mls/hr Titration Protocol 1 MILLIUNIT/MIN [facility] Anesthesia Medical History No pertinent past medical history neghx: htn,dm,thyroid,dvt/pe PCP: Alice Barbosa Surgical History No history of previous surgery Family History Unknown Unknown family medical history The patient is adopted Social History Smoking and tobacco/nicotine status: former use of tobacco/nicotine Female Reproductive History : 3 Data Anesthesia 07/22/24 08:05 Short CBC 07/22/24 Range/Units 08:05 WBC 11.57 H (3.29-11.43) 10^3/uL Hgb 10.80 L (11.27-16.99) g/dL Hct 32.9 L (36-47) % MCV 92.7 (85-98) fl Plt Count 189 (157-399) 10^3/cmm Neut % (Auto) 64.5 % Neut # (Auto) 7.45 (1.8-7.7) 10^3/uL Blood Bank 07/22/24 08:05 Blood Type O Positive Rho(D) Type Rh positive Antibody Screen Negative Cardiac Studies: No Data to Display Anesthesia Procedures Epidural Time Out Performed: Yes Consents Signed: Procedure Consent Consent: requested by attending/covering physician, from patient, risks and benefits reviewed and patient agrees to proceed Lumbar Level: L4-L5 Epidural position: sitting Epidural procedure: sterile prep of area, 1% lidocaine to numb the area, 18 g needle, negative for paresthesia passed, neg for paresthesia, test dose given, 1.5% xylocaine 1:200k epi, 0.2% Ropivacaine bolus ml (5), placed PCEA, no systemic response, sterile dressing applied, L.U.D. no apparent complications and 0.2% Ropiavacaine @ mls/hr (10) Additional Comments: VIDA 5.5cm, catheter easily threaded to 5cm in the space. VS monitored throughout and remained stable. 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
--- NOTE | 2024-07-24 04:29 | PM.DELIVERY ---
Delivery Note: Date of delivery: July 24, 2024 Pre-delivery diagnoses: Term Transverse presentation converted to cephalic Post-delivery diagnoses: Same Procedure: External cephalic version Spontaneous vaginal delivery Delivering Physician: Rah Marsh MD Estimated blood loss (mL): 300 Post Delivery Diagnoses: Transverse or oblique presentation, antepartum: Qualifiers: Fetus number: single or unspecified fetus Qualified Code(s): O32.2XX0 - Maternal care for transverse and oblique lie, not applicable or unspecified Delivery: The patient was noted to be complete and pushing, so was placed in the dorsal lithotomy position, prepped and draped in the usual sterile fashion for a vaginal delivery. Pt. Noted to have epidural anesthesia. At 0419 the patient delivered a viable term male infant weighing 3100 g with scores of 8 and 9 at one and five minutes, respectively. The vertex OP was delivered spontaneously over intact perineum. The patient was asked to push and the head delivered spontaneously in the CHAS position, over an intact perineum. A nuchal cord was checked and one noted, and relieved around head as necessary also the umbilical cord had a true knot. The anterior shoulder delivered easily and the posterior shoulder followed. The remainder of the infant was easily delivered and the oropharynx and nasopharynx was bulb suctioned. The was noted to have spontaneous cry and spontaneous movement of all four extremities. The cord was clamped x 2 and cut and noted to have 2 arteries and one vein. The infant was passed to the mother's abdomen where nursing personnel were in attendance. Cord blood sample was then obtained. The placenta delivered intact spontaneously and the uterus was explored. 20 units of Pitocin was placed in the IV bag to firm the uterus. Examination of the cervix and vaginal vault did not reveal any lacerations. A vaginal pack was then placed. Examination of the perineum showed no lacerations. The vaginal pack was then removed. The patient tolerated this procedure well, and recovered in L&D with her infant in their LDR room. All sponge and needle counts were correct. Post-Delivery Status: Good and stable History History History 3 Term 2 0 Miscarriages/Ectopic 0 Living Children 2 A&P Assessment and plan (1) Term delivered: (2) Transverse or oblique presentation, antepartum: Qualifiers: Fetus number: single or unspecified fetus Qualified Code(s): O32.2XX0 - Maternal care for transverse and oblique lie, not applicable or unspecified Plan laceration Coding Level of Care Code Acute Code for Chg Fwd Diagnoses Term delivered O80 Transverse or oblique presentation, antepartum, single or unspecified fetus O32.2XX0 Fetus number: single or unspecified fetus
[2024-07-24] MEDS: benzocaine-menthol 78 gm Canister 1 SPRAY TOPICAL (08:36)
[2024-07-24] MEDS: ibuprofen 800 mg tablet PO ×3 (08:36→22:24)
[2024-07-24] MEDS: docusate sodium 100 mg Capsule PO (08:36)
[2024-07-24] MEDS: acetaminophen 325 mg Tablet 650 MG PO ×2 (13:10→21:28)
[2024-07-24 17:14] LABS: Hematocrit 34.2 % (36-47); Mean Corpuscular HGB Conc 32.2 g/dL (30-55); Mean Corpuscular Hemoglobin 30.1 pg (27-33); Mean Corpuscular Volume 93.4 fl (85-98); Mean Platelet Volume 10.6 fL (7.4-10.4); Platelet Count 180 10^3/cmm (157-399); Red Blood Count 3.66 10^6/uL (3.85-5.65); Red Cell Distribution Width 13.5 % (12.1-15.1); White Blood Count 14.53 10^3/uL (3.29-11.43)
[2024-07-25] MEDS: HYDROcodone-acetaminophen 5-325 mg Tablet PO ×2 (01:03→06:19)
[2024-07-25 04:00] VITALS: BP 110/59; PULSE 95; TEMP 36.6; TEMP 36.7
--- NOTE | 2024-07-25 07:00 | ANE.PACU2 ---
Inpatient post-anesthesia follow up: Airway intact: Yes Vital signs: Temperature 97.8 F Pulse Rate 82 Respiratory Rate 16 Blood Pressure 114/72 Pulse Oximetry 98 Oxygen Delivery Me thod Room Air Oxygen Flow Rate Fraction of Inspir ed Oxygen Hydration adequate: Yes Nausea and vomiting: No Pain level: 1 Mental status: Baseline Epidural Start/End: Epidural Start Date: 07/24/24 Epidural Start Time: 02:00 Epidural End Date: 07/24/24 Epidural End Time: 09:50
[2024-07-25] MEDS: ibuprofen 800 mg tablet PO (09:23)
[2024-07-25] MEDS: docusate sodium 100 mg Capsule PO (09:23)
[2024-07-25] MEDS: PRENATAL VIT NO.130/IRON/FOLIC 1 EACH TABLET PO (09:24)
[2024-07-25 09:25] VITALS: BP 112/72; PULSE 99; RESP 15; TEMP 36.4
--- NOTE | 2024-07-25 10:15 | PM.OBGYDC ---
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 Alatorre 28-year-old female with an estimated gestational age of 38 weeks 3 days with a transverse presentation infant. Admitted to labor and delivery for an external cephalic version. External cephalic version was successful on third attempt. A shared decision was made to proceed with induction, as the patient did not want to risk the baby turning around again and have to have a . She progressed to had a spontaneous vaginal delivery without complications. observation have been uneventful. She is afebrile and hemodynamically stable day 1. Tolerating diet well. Ambulating without difficulty. Information Peripartum Data: Delivery Method: Vaginal Physical Exam Narrative: GA; alert and oriented x 3 HEENT: normal Breasts: engorged Nipples - skin intact Lungs; clear to auscultation Heart: regular rhythm, no murmurs. Abd: Appropriately tender. BS+. Uterine fundus below umbilicus. No Fundal Tenderness. Perineum: normal lochia. Extremities: no edema, no cyanosis, no tenderness. Urinary Catheter Management: Allison Latex Free: Cath Placed During This Visit: yes, but has since been removed by the nurse Reason for Continuing Indwelling Catheter: Decision to DC Catheter Urinary Catheter Date of Insertion: 07/24/24 Urinary Catheter Time of Insertion: 02:38 Date Urinary Catheter Removed: 07/24/24 Time Urinary Catheter Discontinued: 03:15 History History History 3 Term 2 0 Miscarriages/Ectopic 0 Living Children 2 Discharge Data Studies Completed and Pending Laboratory Results WBC 14.53 10^3/uL (3.29-11.43) H 07/24/24 17:05 RBC 3.66 10^6/uL (3.85-5.65) L 07/24/24 17:05 Hgb 11.00 g/dL (11.27-16.99) L 07/24/24 17:05 Hct 34.2 % (36-47) L 07/24/24 17:05 MCV 93.4 fl (85-98) 07/24/24 17:05 MCH 30.1 pg (27-33) 07/24/24 17:05 MCHC 32.2 g/dL (30-55) 07/24/24 17:05 RDW 13.5 % (12.1-15.1) 07/24/24 17:05 Plt Count 180 10^3/cmm (157-399) 07/24/24 17:05 MPV 10.6 fL (7.4-10.4) H 07/24/24 17:05 Neut % (Auto) 64.5 % 07/22/24 08:05 Lymph % (Auto) 22.5 % 07/22/24 08:05 [place] % (Auto) 9.9 % 07/22/24 08:05 Eos % (Auto) 1.1 % 07/22/24 08:05 Baso % (Auto) 0.3 % 07/22/24 08:05 Neut # (Auto) 7.45 10^3/uL (1.8-7.7) 07/22/24 08:05 Lymph # (Auto) 2.6 10^3/uL (0.8-4.8) 07/22/24 08:05 [place] # (Auto) 1.2 10^3/uL (0.2-0.9) H 07/22/24 08:05 Eos # (Auto) 0.1 10^3/uL (0.0-0.8) 07/22/24 08:05 Baso # (Auto) 0.0 10^3/uL (0.0-0.1) 07/22/24 08:05 Nucleated RBC % (auto) 0 % 07/22/24 08:05 Nucleated RBCs # 0.0 /100WBC 07/22/24 08:05 Blood Type O Positive 07/22/24 08:05 Rho(D) Type Rh positive 07/22/24 08:05 Antibody Screen Negative 07/22/24 08:05 Vitals Last Vital Signs Temp 97.5 F L 02/01/25 09:25 Pulse 99 07/25/24 09:25 Resp 15 07/25/24 09:25 BP 112/72 07/25/24 09:25 Pulse Ox 97 07/24/24 03:05 O2 Del Method Room Air 07/24/24 10:19 Results Labs OB ([facility]): Obstetrics US 07/07/24 Obstetrics US/Biophysical Profile 10/30/22 Blood Type O Positive 07/22/24 Antibody Screen Negative 07/22/24 Hct 34.2 % (36-47) L 07/24/24 Hgb 11.00 g/dL (11.27-16.99) L 07/24/24 Rho(D) Type Rh positive 07/22/24 Plt Count 180 10^3/cmm (157-399) 07/24/24 Hep Bs Antigen Non-reactive (Nonreactive) 01/15/24 Hepatitis C Antibody Non-reactive (Nonreactive) 01/15/24 Rubella IgG Antibody 122.5 IU/mL (0.0-10.0) H 01/15/24 RPR Nonreactive (Nonreactive) 01/15/24 HIV 1&2 Ab & HIV 1 Ag Non-reactive (Non-Reactiv) 01/15/24 TSH 0.98 uIU/mL (0.27-4.20) 01/15/24 C.trachomatis RNA (TMA) Not detected (NOT DETECTED) 02/07/24 N.gonorrhoeae RNA (TMA) Not detected (NOT DETECTED) 02/07/24 T. vaginalis Amp RNA Not detected (NOT DETECTED) 02/07/24 Chlamydia/GC Comment See note 02/07/24 Glucose 1 Hr 50 gm 119 mg/dL (85-140) 04/13/24 Ser , Semi-Qnt 61704.00 mIU/mL 12/18/23 HCG, Qual Positive (Negative) H 12/18/23 Urine Opiates Screen Negative ng/mL (Negative) 01/15/24 Ur Barbiturates Screen Negative ng/mL (Negative) 01/15/24 Ur Phencyclidine Scrn Negative ng/mL (Negative) 01/15/24 Ur Amphetamines Screen Negative ng/mL (Negative) 01/15/24 U Benzodiazepines Scrn Negative ng/mL (Negative) 01/15/24 Urine Cocaine Screen Negative ng/mL (Negative) 01/15/24 U Marijuana (THC) Screen Negative ng/mL (Negative) 01/15/24 Micro Urine Specimen 01/15/24 Pap Smear Interpret See note 02/07/24 Discharge Plan Discharge Patient Disposition: Home Condition: Stable Prescriptions: New acetaminophen 325 mg capsule 325 mg PO Q4H PRN (Reason: fever or pain) Qty: 60 0RF ibuprofen 800 mg tablet 800 mg PO TID PRN (Reason: pain) Qty: 60 0RF Continued calcium carbonate [Tums] 200 mg calcium (500 mg) tablet,chewable 200 mg PO DAILY acetaminophen [Tylenol] 325 mg capsule 325 mg PO ONCE PRN prenat.vits,claire,[id number] Tablet 1 tab PO DAILY Discharge Orders: Discharge Order (Routine); Ordered 07/25/24 Ordered By: Rah Marsh Referrals: Rah Marsh MD [Physician] - 6 Weeks Discharge Diet: Usual diet Discharge Activity: Limit activity as instructed Patient Instructions: Depression (DC), Opioid Safety (DC), Preeclampsia and Eclampsia After Delivery (GEN), Hemorrhage (DC), OB Discharge Report, OB Food/Drug Interaction Guide, Opioid Safety, OB Home Care, OB Vaginal Deliveries - [facility], Abnormal Bleeding Activity Restrictions/Additional Instructions: 1. Please call [facility] on next working day to make your appointment in 6 weeks. 2. Please stay home until you come back to the clinic on first post-hospatilization check up. 3. Please follow instructions on your medications CAREFULLY. 4. If you have abdominal incision, do not cover it unless dressing is necessary because of drainage. OK to shower, but avoid bath. Leave steri-strips until they fall off. If they are still on one week after surgery, you may remove them. 5. If you had vaginal surgery or vaginal repair, Dr. Marsh may instruct you to take SITZ bath. 6. Yellow, blood tinged odorous vaginal discharge is usually normal after hysterectomy or vaginal surgeries. 7. No SEXUAL INTERCOURSE, tampons, or douches until you are completely released from the post-operative care. 8. Avoid constipation by eating right and maybe using some Metamucil or Milk of Magnesia. 9. All prescription refills are given during the working hours. Please do no wait till it runs out. Call the clinic at [phone] before your medication runs out. The clinic will get in touch with your doctor to prescribe medications if necessary. 10. Please remain within 40 mile radius from our hospital because emergencies do happen now and then during the post-operative period. 11. If you have stairs at home, take one step at a time slowly and minimize the number of trips. It helps to stay in one floor for the next few days. No lifting except what you can lift by one hand until you are released from the post-operative care. 12. Driving is discouraged until you are well healed. It may be 3-4 weeks before you feel strong enough to drive. You should be able to turn and look through the rear window without pain and you should be able to push the brake pedal very hard without pain before you drive. No fast rules, but SAFETY should be your primary concern. DO NOT drive if you are on sedating medications such as narcotics. 13. Call the clinic (during working hours) to make urgent appointment or go to the Emergency room, if any of the following occurs: i. Vaginal bleeding becomes heavy, more than a period. ii. Incision becomes red and sore, or drains pus. iii. Your TEMPERATURE is over 100.4F or you have chill. iv. IV site becomes red and swollen (a little ``knot?? is usually OK) v. Persistent nausea and vomiting vi. Persistent constipation or diarrhea vii. Rash or allergic reaction to medications. 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
[2024-07-25 13:05] VITALS: BP 114/72; PULSE 82; RESP 16; TEMP 36.6; O2SAT 98
== END 2024-07-25 13:30 | disposition home or self-care (01) | DRG 807 ==
LOC: OPOB 12:57 → OBGYN 07-23 12:09
PROVIDERS: Admitting Provider Obstetrics & Gynecology; PCP Registered Nurse; Visit Provider Obstetrics & Gynecology
DX: O32.2XX0 Maternal care for transverse and oblique lie, not applicable or unspecified (principal); Z37.0 Single live birth; O69.81X0 Labor and delivery complicated by cord around neck, without compression, not applicable or unspecified; O69.2XX0 Labor and delivery complicated by other cord entanglement, with compression, not applicable or unspecified; Z3A.38 38 weeks gestation of pregnancy; Z87.891 Personal history of nicotine dependence
CPT/HCPCS: 36415; 51702; 59025; 59409; 59412; 85025; 85027; 86850; 86900; 96372; 99211; G0378; J2590; J3105; J3490; J7121